=== PATIENT | male | born 1955 | race Hispanic/Latino ===

== ENCOUNTER 2025-01-08 12:32 | Emergency (ER) | payer OTHER ==
[2025-01-08] MEDS ORDERED: dexAMETHasone 10 MG/ML VIAL ONE (14:10)
[2025-01-08] MEDS ORDERED: HYDROCODONE/APAP 5/325 MG TAB ONE (14:11)
[2025-01-08] MEDS ORDERED: DIAZEPAM 5 MG TABLET ONE (14:11)
[2025-01-08] MEDS ORDERED: KETOROLAC 30 MG/ML INJ ONE (14:11)
[2025-01-08 14:41] LABS: Specific Gravity 1.005 (1.005-1.030); Urine Bilirubin NEGATIVE (Negative); Urine Blood Negative (Negative); Urine Clarity Clear (Clear); Urine Color Colorless (Yellow); Urine Glucose NEGATIVE (Negative); Urine Ketones NEGATIVE (Negative); Urine Microscopic Reflex YN NO UMIC; Urine Nitrite NEGATIVE (Negative); Urine Protein NEGATIVE (Negative); Urine Urobilinogen Normal (Normal)
--- NOTE | 2025-01-08 14:48 | ER ---
Nurse's Notes [facility] Name: Paul Viveros Age: 69 yrs Sex: Male : 1955 Arrival Date: 01/08/2025 Time: 12:32 Bed 11 Private MD: Diagnosis: Low back pain Presentation: 01/08 13:04 Chief complaint: Patient states: he has been having a "tight back for a while.". "my ap3 neck hurts a lot, my back hurts a lot." patient currently rates his pain as a 8/10. Coronavirus screen: At this time, the client does not indicate any symptoms associated with coronavirus-19. Ebola Screen: No symptoms or risks identified at this time. Initial Sepsis Screen: Does the patient meet any 2 criteria? No. Patient's initial sepsis screen is negative. Does the patient have a suspected source of infection? No. Patient's initial sepsis screen is negative. Risk Assessment: Do you want to hurt yourself or someone else? Patient reports no desire to harm self or others. Onset of symptoms is unknown. 13:04 Method Of Arrival: Ambulatory ap3 13:10 Acuity: ARACELI 3 ap3 Triage Assessment: 13:09 General: Appears in no apparent distress. Behavior is calm, cooperative, appropriate ap3 for age. Pain: Complains of pain in back and neck Pain currently is 8 out of 10 on a pain scale. Pain began years ago. Is chronic. Neuro: Level of Consciousness is awake, alert, obeys commands, Oriented to person, place, time, situation, Appropriate for age. Cardiovascular: Patient's skin is warm and dry. Respiratory: Airway is patent Respiratory effort is even, unlabored, Respiratory pattern is regular, symmetrical. Musculoskeletal: Range of motion: intact in all extremities. Historical: - Allergies: 13:08 PENICILLINS; ap3 - PMHx: 13:08 Hypertensive disorder; ap3 - PSHx: 13:08 back sx; ap3 - Immunization history:: Client reports receiving the 2nd dose of the Covid vaccine, Flu vaccine is not up to date. - Infectious Disease History:: Denies. - Social history:: Smoking status: Patient reports the use of cigarette tobacco products, smokes one-half pack cigarettes per day. Screenin:10 Abuse screen: Denies threats or abuse. Nutritional screening: No deficits noted. ap3 Tuberculosis screening: No symptoms or risk factors identified. 13:10 [facility] ED Fall Risk Assessment (Adult) History of falling in the last 3 months, ap3 including since admission No falls in past 3 months (0 pts) Confusion or Disorientation No (0 pts) Intoxicated or Sedated No (0 pts) Impaired Gait No (0 pts) Mobility Assist Device Used No (0 pt) Altered Elimination No (0 pt) Score/Fall Risk Level 0 - 2 = Low Risk Oriented to surroundings, Maintained a safe environment, Educated pt \\T\\ family on fall prevention, incl call for assistance when getting out of bed, Assessed \\T\\ reinforced patient's understanding of fall precautions, Hourly rounding (assess needs \\T\\ fall precautionary measures) done, Used ambulatory aids as needed (educated on \\T\\ assisted with). Assessment: 15:29 Reassessment: Patient states feeling better. Patient states symptoms have improved. ap3 Vital Signs: 13:04 BP 190 / 111; Pulse 72; Resp 18; Temp 97.4; Pulse Ox 98% on R/A; Weight 72.57 kg; Pain ap3 8/10; 15:28 BP 162 / 91; Pulse 68; Resp 18; Pulse Ox 98% on R/A; ap3 13:04 Pain Scale: Adult ap3 ED Course: 12:33 Patient arrived in ED. mr 12:58 Ricardo Eva, NASRA-Leo [facility] kb 12:58 Rafael Haynes MD is Attending Physician. kb 13:10 Triage completed. ap3 13:10 Arm band placed on right wrist. ap3 13:10 Patient has correct armband on for positive identification. ap3 14:04 Valerie Zuniga, TIFFANY is Primary Nurse. ss 15:30 Provided Education on: discharge instructions. ap3 15:30 No provider procedures requiring assistance completed. Patient did not have IV access ap3 during this emergency room visit. Administered Medications: 14:15 Drug: Ketorolac IM 30 mg IM once Route: IM; Site: right deltoid; ss 15:29 Follow up: Response: No adverse reaction; Pain is decreased ap3 14:18 Drug: Dexamethasone IM 10 mg IM once Route: IM; Site: left deltoid; ss 15:29 Follow up: Response: No adverse reaction ap3 14:28 Drug: HYDROcodone-acetaminophen PO 5 mg-325 mg 1 tabs PO once Route: PO; ss 15:29 Follow up: Response: No adverse reaction; Pain is decreased ap3 14:28 Drug: Diazepam PO 5 mg PO once Route: PO; ss 15:29 Follow up: Response: No adverse reaction; Pain is decreased ap3 Medication: 15:30 VIS not applicable for this client. ap3 Outcome: 14:48 Discharge ordered by . sunny 15:30 Discharged to home ambulatory, ap3 15:30 Condition: good 15:30 Discharge instructions given to patient, Instructed on discharge instructions, follow up and referral plans. medication usage, Demonstrated understanding of instructions, follow-up care, medications, Prescriptions given X 3, 15:31 Patient left the ED. ap3 Signatures: Eva Silva, NASRA-C IT BUSINESS PROCESS ARCHITECT-Ruby Salmon, Reg Reg mr Valerie Zuniga, TIFFANY RN ss Mona Campbell RN RN ap3 Corrections: (The following items were deleted from the chart) 14:30 04:15 Ketorolac IM 30 mg IM in right deltoid ss
--- NOTE | 2025-01-08 14:48 | EDPHYS ---
Physician Documentation [facility] Name: Paul Viveros Age: 69 yrs Sex: Male : 1955 Arrival Date: 01/08/2025 Time: 12:32 Bed 11 Private MD: ED Physician Rafael Haynes HPI: 01/08 14:19 This 69 yrs old Male presents to ER via Ambulatory with complaints of Back kb Pain. 14:19 Pt is a 69 year old male who presents for low back pain that has been an ongoing issue kb for years. States he had his first back surgery at the age of 28 and another one in 2009. States the pain has been worse over the last 5 years and describes it as "tightening up." denies urinary symptoms, numbness, tingling to lower extremities. . Historical: - Allergies: 13:08 PENICILLINS; ap3 - PMHx: 13:08 Hypertensive disorder; ap3 - PSHx: 13:08 back sx; ap3 - Immunization history:: Client reports receiving the 2nd dose of the Covid vaccine, Flu vaccine is not up to date. - Infectious Disease History:: Denies. - Social history:: Smoking status: Patient reports the use of cigarette tobacco products, smokes one-half pack cigarettes per day. ROS: 14:21 Constitutional: As per HPI kb Exam: 14:21 Constitutional: This is a well developed, well nourished patient who is awake, alert, kb and in no acute distress. Head/Face: Normocephalic, atraumatic. ENT: Moist Mucous membranes Cardiovascular: Regular rate Respiratory: Respirations even and unlabored. No increased work of breathing. Talking in full sentences Abdomen/GI: Soft, non-tender. No distention Skin: Warm, dry with normal turgor. Normal color. MS/ Extremity: Pulses equal, no cyanosis. Neurovascular intact. Full, normal range of motion. Neuro: Awake and alert, GCS 15, oriented to person, place, time, and situation. 14:21 Back: pain, that is mild, of the lumbar area, ROM is normal, Vital Signs: 13:04 BP 190 / 111; Pulse 72; Resp 18; Temp 97.4; Pulse Ox 98% on R/A; Weight 72.57 kg; Pain ap3 8/10; 15:28 BP 162 / 91; Pulse 68; Resp 18; Pulse Ox 98% on R/A; ap3 13:04 Pain Scale: Adult ap3 MDM: 12:58 Medical Screening Exam initiated kb 14:21 Differential diagnosis: arthritis, strain, Herniated disc UTI. Data reviewed: vital kb signs, nurses notes. Test considered but Not performed: CT: ct considered but pt has had no new injury, pain is chronic, no neuro deficits. 14:47 Counseling: I had a detailed discussion with the patient and/or guardian regarding the kb historical points, exam findings, and any diagnostic results supporting the discharge/admit diagnosis, lab results, the need for outpatient follow up, a family practitioner, to return to the emergency department if symptoms worsen or persist or if there are any questions or concerns that arise at home. 01/08 13:14 Order name: Urinalysis w/ reflexes; Complete Time: 14:47 kb 01/08 14:50 Order name: Vital Signs kb Administered Medications: 14:15 Drug: Ketorolac IM 30 mg IM once Route: IM; Site: right deltoid; ss 15:29 Follow up: Response: No adverse reaction; Pain is decreased ap3 14:18 Drug: Dexamethasone IM 10 mg IM once Route: IM; Site: left deltoid; ss 15:29 Follow up: Response: No adverse reaction ap3 14:28 Drug: HYDROcodone-acetaminophen PO 5 mg-325 mg 1 tabs PO once Route: PO; ss 15:29 Follow up: Response: No adverse reaction; Pain is decreased ap3 14:28 Drug: Diazepam PO 5 mg PO once Route: PO; ss 15:29 Follow up: Response: No adverse reaction; Pain is decreased ap3 Disposition: 16:28 Co-signature as Attending Physician, Rafael Haynes MD. rn Disposition Summary: 01/08/25 14:48 Discharge Ordered Notes: Location: Home kb Condition: Stable kb Diagnosis - Low back pain kb Followup: kb - With: Emergency Department - When: As needed - Reason: Worsening of condition Followup: kb - With: Private Physician - When: 2 - 3 days - Reason: Recheck today's complaints, Continuance of care, Re-evaluation by your physician Discharge Instructions: - Discharge Summary Sheet kb - Chronic Back Pain, [id number] kb Forms: - Medication Reconciliation Form kb - Antibiotic Education kb - Prescription Opioid Use kb - Patient Portal Instructions kb - Leadership Thank You Letter kb Prescriptions: - Prednisone 20 mg Oral Tablet - take 1 tablet ORAL route once daily for 5 days; 5 tablet; Refills: 0, Product kb Selection Permitted - Cyclobenzaprine 10 mg Oral tablet - take 1 tablet ORAL route every 8 hours As needed; 21 tablet; Refills: 0, kb Product Selection Permitted - Diclofenac Sodium 75 mg Oral tablet, delayed release (enteric coated) - take 1 tablet ORAL route 2 times per day As needed; 30 tablet; Refills: 0, kb Product Selection Permitted Signatures: Dispatcher [employer] EDEva Rubio, GENERAL OPERATIONS AGENT-C GENERAL OPERATIONS AGENT-Ckb Rafael Haynes MD MD rn Blanchard, Shelby, RN RN ss Mona Cambpell RN RN ap3
[2025-01-08 16:15] VITALS: TEMP 97.4; O2SAT 98
[2025-01-08 16:16] VITALS: BP 162/91
== END 2025-01-08 15:31 | disposition home or self-care (01) ==
LOC: ER 12:32
DX: M54.50 Low back pain, unspecified (principal); F17.210 Nicotine dependence, cigarettes, uncomplicated
CPT/HCPCS: 81003; 96372; 99284; J1100